=== PATIENT | male | born 1935 | race Caucasian/White ===

== ENCOUNTER 2018-01-08 10:08 | Day surgery (SDC) | payer MEDICARE, OTHER ==
[~2018-01-08] VITALS: Ht 160 cm; Wt 79.0 kg
[2018-01-08] VITALS (9 sets, daily range): BP systolic 116–170; BP diastolic 87–99; PULSE 55–80; TEMP 98.3
[2018-01-08] MEDS ORDERED: MULTI VITAMINS1 TAB PO (10:38)
[2018-01-08] MEDS ORDERED: CRESTOR 10MG10 MG PO (10:39)
[2018-01-08] MEDS ORDERED: ZYRTEC 10MG10 MG PO (10:39)
[2018-01-08] MEDS ORDERED: ASPIRIN E.C. 8181 MG PO (10:39)
[2018-01-08] MEDS ORDERED: LOPRESSOR 225 MG/TAB PO (10:40)
[2018-01-08] MEDS ORDERED: MASON NATURAL2000 IU PO (10:40)
[2018-01-08] MEDS ORDERED: ZETIA 10MG TAB10 MG PO (10:40)
[2018-01-08 10:59] LABS: HEMATOCRIT 43.7 % (42.0-52.0); HEMOGLOBIN 14.7 g/dl (13.5-18.0); MEAN CELL VOLUME 87 fl (80.0-100.0); MEAN CORPUSCULAR HEMOGLOBIN 29 pg (27.0-31.0); MEAN CORPUSCULAR HGB CONC 34 g/dl (33.0-37.0); PLATELET COUNT 237 K/mm3 (130-400); RED BLOOD COUNT 5.01 M/mm3 (4.20-5.60); REDCELL DISTRIBUTION WIDTH-CV 13.4 % (11.5-14.5)
[2018-01-08 11:05] LABS: INR 0.9 (0.8-3.0); PROTHROMBIN TIME 10.2 SECONDS (9.7-12.8)
[2018-01-08 11:12] LABS: CALCIUM 9.4 mg/dL (8.4-10.2); CREATININE, serum 0.8 mg/dL (0.66-1.25); POTASSIUM 4.3 mmol/L (3.4-5.0)
== END 2018-01-08 18:30 | disposition home or self-care (01) ==
LOC: COL.CAR 10:08
PROVIDERS: Internal Medicine Interventional Cardiology
DX: I25.119 Atherosclerotic heart disease of native coronary artery with unspecified angina pectoris (principal); I10 Essential (primary) hypertension; E78.5 Hyperlipidemia, unspecified; Z90.79 Acquired absence of other genital organ(s); Z79.82 Long term (current) use of aspirin; Z87.891 Personal history of nicotine dependence
CPT/HCPCS: J2250; J3010; Q9967